=== PATIENT | female | born 2000 | race African-American/Black ===

== ENCOUNTER 2021-05-28 11:06 | Emergency (ER) | payer OTHER ==
[~2021-05-28] VITALS: Ht 162.6 cm; Wt 79.8 kg
[2021-05-28 11:08] VITALS: BP 131/76
== END 2021-05-28 12:24 | disposition home or self-care (01) ==
LOC: ER 11:06
DX: S67.197A Crushing injury of left little finger, initial encounter (principal); W23.1XXA Caught, crushed, jammed, or pinched between stationary objects, initial encounter; Y93.89 Activity, other specified; Y92.89 Other specified places as the place of occurrence of the external cause; Y99.8 Other external cause status